=== PATIENT | female | born 1940 | race Caucasian/White ===

== ENCOUNTER 2022-03-14 05:35 | Day surgery (SDC) | payer OTHER | END 2022-03-14 09:40 | disposition home or self-care (01) | LOC: AMB-ENDOS 05:35 | PROVIDERS: ATTEND Colon & Rectal Surgery | DX: K52.89 Other specified noninfective gastroenteritis and colitis (principal); K57.20 Diverticulitis of large intestine with perforation and abscess without bleeding; Z93.3 Colostomy status; K64.1 Second degree hemorrhoids; Z20.822 Contact with and (suspected) exposure to COVID-19 ==

== ENCOUNTER 2022-06-04 08:47 | Inpatient (IN) | payer OTHER ==
[~2022-06-04] VITALS: Ht 162.6 cm; Wt 49.9 kg
[~2022-06-04 08:47] MED LIST: BENICAR20 MG PO; ROSUVASTATIN CAL5 MG PO; SYNTHROID50 MCG PO; TOPROL XL50 M1 PO
== END 2022-06-08 10:02 | disposition home or self-care (01) | DRG 329 ==
LOC: SURG 06-05 06:00 → O/R 06-05 06:00 → SURH 06-05 07:00 → SURG 06-05 14:17
PROVIDERS: ADMIT Colon & Rectal Surgery; ATTEND Colon & Rectal Surgery
PROC: 0DBP4ZZ Excision of Rectum, Percutaneous Endoscopic Approach (ICD-10-PCS; 2022-06-05)
PROC: 0DBM4ZZ Excision of Descending Colon, Percutaneous Endoscopic Approach (ICD-10-PCS; 2022-06-05)
PROC: 0WQF4ZZ Repair Abdominal Wall, Percutaneous Endoscopic Approach (ICD-10-PCS; 2022-06-05)
PROC: 0DJD8ZZ Inspection of Lower Intestinal Tract, Via Natural or Artificial Opening Endoscopic (ICD-10-PCS; 2022-06-05)
PROC: 0DTN4ZZ Resection of Sigmoid Colon, Percutaneous Endoscopic Approach (ICD-10-PCS; principal; 2022-06-05 07:00)
DX: K57.20 Diverticulitis of large intestine with perforation and abscess without bleeding (principal); K65.1 Peritoneal abscess; Z43.3 Encounter for attention to colostomy; I10 Essential (primary) hypertension; E03.9 Hypothyroidism, unspecified